=== PATIENT | female | born 1985 | race Two or more races ===

== ENCOUNTER 2023-01-25 07:35 | Emergency (ER) | payer OTHER ==
[~2023-01-25] VITALS: Ht 157.5 cm; Wt 99.8 kg
[~2023-01-25 07:35] MED LIST: DOLOGEN CAPLET1 EACH PO; LEVSIN/SL0.125 MG SL; ONDANSETRON ODT8 MG PO; PEPCID AC20 MG PO
== END 2023-01-25 12:24 | disposition home or self-care (01) ==
LOC: ER 07:35
DX: N80.9 Endometriosis, unspecified (principal); R10.2 Pelvic and perineal pain

== ENCOUNTER 2024-03-10 06:56 | Emergency (ER) | payer OTHER ==
[~2024-03-10] VITALS: Ht 157.5 cm; Wt 97.5 kg
[2024-03-10 09:40] LABS: HEMATOCRIT 33.6 % (36.0-45.00); HEMOGLOBIN 10.6 g/dL (12.0-15.00); MEAN CORPUSCULAR HEMOGLOBIN 20.1 pg (27.00-32.0); MEAN CORPUSCULAR HGB CONC 31.6 g/dl (32.0-36.0); PLATELET COUNT 299 K/uL (150-450); RED BLOOD COUNT 5.26 M/uL (4.00-6.00); RED CELL DISTRIBUTION WIDTH 19.3 % (11.5-14.5)
[2024-03-10 09:41] LABS: MEAN CELL VOLUME 63.8 fL (80.00-100.00)
[2024-03-10] MEDS ORDERED: KETOROLAC TROMETHAMINE 30 MG VIAL IM STA (11:03)
[2024-03-10] MEDS ORDERED: KETOROLAC TROMETHAMINE 30 MG VIAL ONE (11:13)
[2024-03-10] MEDS ORDERED: CEFTRIAXONE SODIUM 1,000 MG VIAL IM STA (11:43)
[2024-03-10] MEDS ORDERED: CEFTRIAXONE SODIUM 1,000 MG VIAL ONE (11:47)
[2024-03-10] MEDS ORDERED: LIDOCAINE HCL 1% 10ML VIAL ONE (11:48)
== END 2024-03-10 11:59 | disposition home or self-care (01) ==
LOC: ER 06:58
PROVIDERS: General Practice
DX: J06.9 Acute upper respiratory infection, unspecified (principal); Z20.822 Contact with and (suspected) exposure to COVID-19

== ENCOUNTER 2024-05-28 19:49 | Emergency (ER) | payer OTHER ==
[~2024-05-28] VITALS: Ht 157.5 cm; Wt 95.3 kg
[2024-05-28] MEDS ORDERED: METFORMIN HCL500 M3 PO (20:04)
[2024-05-28] MEDS ORDERED: TRICOR48 MG PO (20:05)
[2024-05-28] MEDS ORDERED: ZESTRIL5 MG PO (20:05)
[2024-05-28] MEDS ORDERED: LIDOCAINE HCL 1% 10ML VIAL PERCUT ONE (21:30)
[2024-05-28] MEDS ORDERED: KETOROLAC TROMETHAMINE 60 MG VIAL IM ONE (21:30)
[2024-05-28] MEDS ORDERED: CEFTRIAXONE SODIUM 1,000 MG VIAL IM ONE (21:30)
[2024-05-28] MEDS ORDERED: CEPHALEXIN750 MG PO (22:35)
[2024-05-28] MEDS ORDERED: PEPCID AC20 MG PO (22:35)
== END 2024-05-28 22:45 | disposition home or self-care (01) ==
LOC: ER 19:51
DX: S91.122A Laceration with foreign body of left great toe without damage to nail, initial encounter (principal); W18.39XA Other fall on same level, initial encounter; Y93.F1 Activity, caregiving, bathing; Y92.012 Bathroom of single-family (private) house as the place of occurrence of the external cause; I10 Essential (primary) hypertension; E11.9 Type 2 diabetes mellitus without complications; Z79.84 Long term (current) use of oral hypoglycemic drugs
CPT/HCPCS: 12004; 73620; 96372; 99283; J0696; J1885

== ENCOUNTER 2024-06-11 10:23 | Emergency (ER) | payer OTHER ==
[~2024-06-11] VITALS: Ht 157.5 cm; Wt 97.5 kg
[~2024-06-11 10:23] MED LIST changes: +CEPHALEXIN750 MG PO; +METFORMIN HCL500 M3 PO; +TRICOR48 MG PO; +ZESTRIL5 MG PO
[2024-06-11 11:03] VITALS: BP 145/64; O2SAT 98
== END 2024-06-11 11:43 | disposition home or self-care (01) ==
LOC: ER 10:25
DX: Z48.02 Encounter for removal of sutures (principal)

== ENCOUNTER 2024-06-21 16:49 | Emergency (ER) | payer OTHER ==
[~2024-06-21] VITALS: Ht 157.5 cm; Wt 96.2 kg
== END 2024-06-21 20:15 | disposition home or self-care (01) ==
LOC: ER 16:51
DX: Z48.02 Encounter for removal of sutures (principal)

== ENCOUNTER 2024-12-11 07:34 | Emergency (ER) | payer OTHER ==
[~2024-12-11] VITALS: Ht 157.5 cm; Wt 97.5 kg
[2024-12-11 08:08] VITALS: BP 143/95; O2SAT 98
[2024-12-11 10:25] LABS: BASO % 0.6 % (0.1-1.2); EOS # 0.18 (0.04-0.54); EOS % 1.6 % (0.7-7.0); HEMOGLOBIN 11.7 g/dL (11.2-15.7); LYMPH # 3.14 (1.18-3.74); LYMPH % 28.5 % (19.3-53.1); MONO # 0.89 (0.24-0.82); MONO % 8.1 % (4.7-12.5); NEUT # 6.71 (1.56-6.13); NEUT % 60.8 % (34.0-71.1); PLATELET COUNT 384 K/uL (163-369); RED BLOOD COUNT 5.85 M/uL (3.93-5.22); RED CELL DISTRIBUTION WIDTH 17.9 % (11.6-14.4)
[2024-12-11 10:46] LABS: COVID-19 AG NEGATIVE (NEGATIVE); INFLUENZA A AG NEGATIVE (NEGATIVE)
[2024-12-11] MEDS ORDERED: ACETAMINOPHEN500 M1 PO (12:28)
[2024-12-11] MEDS ORDERED: GILTUSS COUGH-118 M1 PO (12:28)
[2024-12-11] MEDS ORDERED: ZITHROMAX TRI-500 MG PO (12:33)
[2024-12-11] MEDS ORDERED: BUDESONIDE0.5 MG/2 M IH (12:37)
[2024-12-11] MEDS ORDERED: ALBUTEROL2.5 MG/3 M IH (12:37)
== END 2024-12-11 12:39 | disposition home or self-care (01) ==
LOC: ER 07:34
PROVIDERS: Preventive Medicine Public Health & General Preventive Medicine
DX: B34.9 Viral infection, unspecified (principal); Z20.822 Contact with and (suspected) exposure to COVID-19; Z91.013 Allergy to seafood

== ENCOUNTER 2025-03-21 06:42 | Emergency (ER) | payer OTHER ==
[~2025-03-21] VITALS: Ht 157.5 cm; Wt 104.3 kg
[~2025-03-21 06:42] MED LIST changes: +ACETAMINOPHEN500 M1 PO; +ALBUTEROL2.5 MG/3 M IH; +BUDESONIDE0.5 MG/2 M IH; +GILTUSS COUGH-118 M1 PO; +ZITHROMAX TRI-500 MG PO
[2025-03-21] MEDS ORDERED: METFORMIN HCL500 M4 PO (07:20)
[2025-03-21] MEDS ORDERED: MOUNJARO2.5 MG/0.5 SQ (07:20)
[2025-03-21] MEDS ORDERED: 0.9 % SODIUM CHLORIDE 1,000 ML IV STA (08:41)
[2025-03-21 09:12] LABS: BASO % 0.7 % (0.1-1.2); EOS # 0.14 (0.04-0.54); EOS % 1.4 % (0.7-7.0); LYMPH # 3.21 (1.18-3.74); LYMPH % 31.4 % (19.3-53.1); MEAN PLATELET VOLUME 11.00 fl (9.4-12.4); MONO # 0.71 (0.24-0.82); MONO % 6.9 % (4.7-12.5); NEUT # 6.07 (1.56-6.13); NEUT % 59.4 % (34.0-71.1); RED CELL DISTRIBUTION WIDTH 16.9 % (11.6-14.4)
[2025-03-21 09:35] LABS: BUN CREA RATIO 19.0 (7.0-25.0); CREATININE SERUM 0.42 mg/dL (0.55-1.02); GFR 169.77; GLUCOSE FASTING 84.0 mg/dL (65-100); OSMOLALITY SERUM 279.0 MOSM/KG (275-295)
[2025-03-21 09:59] LABS: URINE APPEARANCE Clear; URINE BILIRRUBIN Negative (NEGATIVE); URINE BLOOD Negative; URINE COLOR Yellow; URINE GLUCOSE Negative (NEGATIVE); URINE KETONE Negative (NEGATIVE); URINE LEUKOCYTE Negative; URINE NITRATE Negative; URINE PROTEIN Trace (NEGATIVE); URINE UROBILINOGEN 0.2 E.U./dl
[2025-03-21 10:03] LABS: URINE BACTERIA 547.1 uL (0.0-1933); URINE EPITHELIAL CELLS 30.7 uL (0.0-38.8); URINE RBC 19.0 uL (0.0-20.8); URINE WBC 17.2 uL (0.0-23.2)
[2025-03-21 10:07] LABS: URINE CAST 0.29 uL (0.0-1.40)
== END 2025-03-21 14:32 | disposition home or self-care (01) ==
LOC: ER 06:50
PROVIDERS: Emergency Medicine
DX: K52.89 Other specified noninfective gastroenteritis and colitis (principal); E11.9 Type 2 diabetes mellitus without complications; Z79.84 Long term (current) use of oral hypoglycemic drugs; Z91.013 Allergy to seafood